=== PATIENT | male | born 1995 | race Caucasian/White ===

== ENCOUNTER 2023-05-17 14:11 | Outpatient (CLI) | payer BC, SELFPAY ==
[2023-05-17 22:44] LABS: Chlamydia DNA Amplified* NOT DETECTED (No Detected); GC DNA Amplified* NOT DETECTED (No Detected)
== END 2023-05-17 14:12 | disposition home or self-care (01) ==
LOC: NFLDUCREF 14:11
PROVIDERS: Visit Provider Physician Assistant
DX: R30.0 Dysuria (principal)
CPT/HCPCS: 87491; 87591